=== PATIENT | male | born 1955 | race Hispanic/Latino ===

== ENCOUNTER → 2022-11-10 | Outpatient (CLI) | payer MEDICARE ==
[~2022-11-10] MED LIST: GADOBENATE DIMEGLUMINE 1 ML IV ONE
[2022-11-10 08:49] LABS: CREATININE, SERUM 0.85 mg/dL (0.72-1.25)
== END ==
LOC: MRI 07:59
PROVIDERS: ATTEND Podiatrist Foot & Ankle Surgery
DX: R22.41 Localized swelling, mass and lump, right lower limb (principal)
CPT/HCPCS: 36415; 82565; 84520